=== PATIENT | male | born 1975 | race Two or more races ===

== ENCOUNTER 2016-12-28 20:02 | Emergency (ER) | payer MEDICAID ==
[~2016-12-28] VITALS: Ht 162.6 cm; Wt 81.6 kg
[~2016-12-28 20:02] MED LIST: METF-312 PO
[2016-12-28 22:09] LABS: Basophils # (auto) 0.1 uL; DEFINITIVE VIEW TRANSMISSION; Mean Corpuscular Volume 77.8 fL (80.0-100.0); Monocytes # (auto) 0.9 uL
[2016-12-28 22:17] LABS: Basophils % (auto) 0.8 % (0.0-2.0); Eosinophils # (auto) 0.1 uL; Eosinophils % (auto) 1.2 % (0.0-7.0); Hematocrit 40.3 % (41.0-53.0); Lymphocytes # (auto) 2.8 uL; Lymphocytes % (auto) 37.5 % (10.0-50.0); Mean Corpuscular Hemoglobin 25.2 pg (28.0-32.0); Mean Corpuscular Hgb Conc. 32.4 g/dL (32.0-36.0); Mean Platelet Volume 8.7 fL (7.4-10.4); Monocytes % (auto) 11.4 % (0.0-12.0); Neutrophils # (auto) 3.7 uL; Neutrophils % (auto) 49.1 % (37.0-80.0); Platelet Count (auto) 192 10^3/uL (140-450); White Blood Cell 7.6 10^3/uL (4.4-10.8)
[2016-12-28 22:27] LABS: Albumin 3.4 g/dL (3.4-5.0); Bilirubin, Total 0.5 mg/dL (0.2-1.0); Calcium 8.3 mg/dL (8.5-10.1); Potassium 3.8 mmol/L (3.5-5.1); Total Protein 8.2 g/dL (6.4-8.2)
[2016-12-28 22:30] LABS: Red Cell Distribution Width 22.7 % (11.6-16.0)
[2016-12-28 23:19] LABS: Anisocytosis Moderate; Hypochromia Slight; Platelet Estimate Adequate
[2016-12-28 23:20] LABS: Ovalocytes FEW
[2016-12-29] MEDS ORDERED: SODIUM CHLORIDE 0.9% 2,000 ML IV ONE (02:45)
[2016-12-29 05:59] LABS: Urine RBC None Seen /hpf (0 - 3)
[2016-12-29 07:39] LABS: Urine Bilirubin Negative (Negative); Urine Blood Negative /uL (Negative); Urine Color Yellow (Yellow); Urine Glucose Normal (Normal); Urine Ketone Negative (Negative); Urine Mucus FEW (None Seen); Urine Nitrite Negative (Negative); Urine Squamous Epithelial Cell FEW /hpf (<5); Urine Urobilinogen Normal (Negative); Urine pH 5.5 (5.0-8.0)
[2016-12-29] MEDS ORDERED: SODIUM CHLORIDE 0.9% 1,000 ML IV ONE (11:47)
[2016-12-29] MEDS ORDERED: SODIUM CHLORIDE 0.9% 250 ML IV ONE (11:47)
[2016-12-29] MEDS ORDERED: chlordiazePOXIDE HCL 5 MG CAP PO ONE (12:00)
[2016-12-29 18:30] VITALS: BP 184/110
[2016-12-29] MEDS ORDERED: cloNIDine HCL 0.1 MG TAB PO ONE (18:45)
== END 2016-12-29 18:53 | disposition home or self-care (01) ==
LOC: ER 20:07
DX: F10.120 Alcohol abuse with intoxication, uncomplicated (principal); F32.9 Major depressive disorder, single episode, unspecified; F41.9 Anxiety disorder, unspecified; E11.9 Type 2 diabetes mellitus without complications; E78.5 Hyperlipidemia, unspecified; I10 Essential (primary) hypertension; F17.210 Nicotine dependence, cigarettes, uncomplicated; Z88.0 Allergy status to penicillin
CPT/HCPCS: 36415; 80053; 80320; 81001; 82140; 84484; 85025; 94761; 96360; 99285; G0434; J7030

== ENCOUNTER 2017-10-05 13:33 | Inpatient (IN) | payer MEDICAID ==
[~2017-10-05] VITALS: Ht 162.6 cm; Wt 78.4 kg
[~2017-10-05 13:33] MED LIST changes: -METF-312 PO; +METF-370 PO; +PANT40T PO
[2017-10-05 15:01] LABS: Basophils % (auto) 0.5 % (0.0-2.0); Lymphocytes # (auto) 1.9 uL; Mean Corpuscular Hgb Conc. 31.4 g/dL (32.0-36.0); Nucleated Red Blood Cells % 0.3 %
[2017-10-05 15:05] LABS: Basophils # (auto) 0 uL; Eosinophils # (auto) 0.2 uL; Eosinophils % (auto) 2.4 % (0.0-7.0); Hematocrit 20.9 % (41.0-53.0); Lymphocytes % (auto) 19.1 % (10.0-50.0); Mean Corpuscular Hemoglobin 23.4 pg (28.0-32.0); Mean Corpuscular Volume 74.7 fL (80.0-100.0); Monocytes # (auto) 1.7 uL; Monocytes % (auto) 16.9 % (0.0-12.0); Neutrophils # (auto) 6.2 uL; Neutrophils % (auto) 61.1 % (37.0-80.0); Platelet Count (auto) 426 10^3/uL (140-450); White Blood Cell 10.1 10^3/uL (4.4-10.8)
[2017-10-05 15:25] LABS: Albumin 2.3 g/dL (3.4-5.0); BUN/Creatinine Ratio 24.6; Bilirubin, Total 0.4 mg/dL (0.2-1.0); Calcium 7.7 mg/dL (8.5-10.1); Potassium 3.8 mmol/L (3.5-5.1); Total Protein 6.7 g/dL (6.4-8.2)
[2017-10-05 16:38] LABS: Hemoglobin 6.6 g/dL (13.5-17.5)
[2017-10-05] MEDS ORDERED: PANTOPRAZOLE 40 MG/10 ML VIAL IV STA (18:14)
[2017-10-05] MEDS ORDERED: SODIUM CHLORIDE 0.9% 1,000 ML IV ONE (18:14)
[2017-10-05 18:58] LABS: INR 0.96 (0.9-1.15); Partial Thromboplastin Time 25.2 sec (22.64-33.71); Prothrombin Time 10.5 sec (9.37-12.3)
[2017-10-05] MEDS: SODIUM CHLORIDE 0.9% 1,000 ML IV SCH (19:36)
[2017-10-05] MEDS ORDERED: NITROGLYCERIN 0.4 MG SL TAB SL PRN (19:45)
[2017-10-05] MEDS ORDERED: THIAMINE HCL 100 MG/ML 2ML VIAL IV ONE (19:45)
[2017-10-05] MEDS ORDERED: MORPHINE SULFATE 4 MG/ML SYR/VIAL IV PRN (19:45)
[2017-10-05] MEDS ORDERED: PROMETHAZINE HCL 25 MG/ML 1ML IV PRN (19:45)
[2017-10-05] MEDS ORDERED: MORPHINE SULF INJ 2 MG/ML SYRINGE 1ML IV PRN ×2 (19:45)
[2017-10-05] MEDS ORDERED: LORazepam 2MG/ML-1ML VIAL IV PRN (19:45)
[2017-10-05] MEDS: PANTOPRAZOLE 40 MG/10 ML VIAL IV SCH (22:00)
[2017-10-05] MEDS: metroNIDAZOLE 500MG/100ML 100 ML IV SCH (22:00)
[2017-10-06] MEDS ORDERED: chlordiazePOXIDE HCL 25 MG CAP PO SCH
[2017-10-06 00:24] VITALS: BP 121/73
[2017-10-06 00:41] VITALS: BP 92/58
[2017-10-06 00:56] VITALS: BP 96/56
[2017-10-06] MEDS: SODIUM CHLORIDE 0.9% 1,000 ML IV SCH ×4 (02:26→21:32)
[2017-10-06 04:42] LABS: Basophils # (auto) 0.1 uL; Basophils % (auto) 0.6 % (0.0-2.0); Eosinophils # (auto) 0.2 uL; Neutrophils # (auto) 6.1 uL; Nucleated Red Blood Cells % 0.1 %; White Blood Cell 9.4 10^3/uL (4.4-10.8)
[2017-10-06 04:44] LABS: Eosinophils % (auto) 2.3 % (0.0-7.0); Hematocrit 23.7 % (41.0-53.0); Hemoglobin 7.7 g/dL (13.5-17.5); Lymphocytes # (auto) 1.9 uL; Lymphocytes % (auto) 19.7 % (10.0-50.0); Mean Corpuscular Hemoglobin 24.5 pg (28.0-32.0); Mean Corpuscular Hgb Conc. 32.3 g/dL (32.0-36.0); Mean Corpuscular Volume 75.8 fL (80.0-100.0); Monocytes # (auto) 1.2 uL; Monocytes % (auto) 12.8 % (0.0-12.0); Neutrophils % (auto) 64.6 % (37.0-80.0); Platelet Count (auto) 352 10^3/uL (140-450); Red Blood Cells 3.12 10^6/uL (4.5-5.90)
[2017-10-06 04:51] LABS: Red Cell Distribution Width 22.6 % (11.8-14.3)
[2017-10-06 04:59] LABS: Calcium 7.5 mg/dL (8.5-10.1)
[2017-10-06 05:02] LABS: Bilirubin, Total 0.6 mg/dL (0.2-1.0); Total Protein 5.8 g/dL (6.4-8.2)
[2017-10-06] MEDS: metroNIDAZOLE 500MG/100ML 100 ML IV SCH ×3 (06:36→21:31)
[2017-10-06] MEDS: PANTOPRAZOLE 40 MG/10 ML VIAL IV SCH (09:33)
[2017-10-06] MEDS: LEVOFLOXACIN 500MG 100 ML IV SCH (09:33)
[2017-10-06] MEDS: FAMOTIDINE (10MG/ML) 2ML VL IV SCH (09:51)
[2017-10-06] MEDS: THIAMINE HCL 100 MG/ML 2ML VIAL IV SCH (09:51)
[2017-10-06 12:13] LABS: Hematocrit 22.9 % (41.0-53.0)
[2017-10-06 12:17] LABS: Hemoglobin 7.5 g/dL (13.5-17.5)
[2017-10-06] MEDS ORDERED: LIDOCAINE VISCOUS 2% 15ML UD ONE (12:52)
[2017-10-06] MEDS ORDERED: MIDAZOLAM HCL 5 MG/ML-1ML VIAL ONE (12:53)
[2017-10-06] MEDS ORDERED: fentaNYL CITRATE 100 MCG/2 ML VL ONE (12:53)
[2017-10-06] MEDS ORDERED: SODIUM CHLORIDE LOCK 10 ML ONE (12:54)
[2017-10-06] MEDS ORDERED: diphenhdrAMINE HCL 50 MG/1 ML VL ONE (12:54)
[2017-10-06] MEDS ORDERED: EPINEPHrine HCL 1 MG/10 ML SYRG ONE (13:03)
[2017-10-06 17:00] VITALS: BP 115/70
[2017-10-06] MEDS ORDERED: PNEUMOCOCCAL VACC POLYS 25 MCG/0.5 ML VIAL IM ONE (19:15)
[2017-10-06] MEDS ORDERED: INFLUENZA QUAD 2017-2018 0.5 ML SYRG IM ONE (19:15)
[2017-10-06] MEDS: PANTOPRAZOLE 40 MG TAB PO SCH (21:31)
[2017-10-06 22:00] VITALS: BP 115/67
[2017-10-07] MEDS: SODIUM CHLORIDE 0.9% 1,000 ML IV SCH ×2 (05:21→09:53)
[2017-10-07] MEDS: metroNIDAZOLE 500MG/100ML 100 ML IV SCH ×2 (05:35→14:00)
[2017-10-07 06:00] VITALS: BP_SYST 111; BP_SYST 115; BP_SYST 120; BP_DIAS 66; BP_DIAS 67
[2017-10-07 09:01] VITALS: BP 127/73
[2017-10-07] MEDS: FAMOTIDINE (10MG/ML) 2ML VL IV SCH (09:52)
[2017-10-07] MEDS: THIAMINE HCL 100 MG/ML 2ML VIAL IV SCH (09:52)
[2017-10-07] MEDS: PANTOPRAZOLE 40 MG TAB PO SCH (09:52)
[2017-10-07] MEDS: LEVOFLOXACIN 500MG 100 ML IV SCH (09:53)
[2017-10-07 13:00] VITALS: BP 117/70
[2017-10-07 13:42] VITALS: BP 117/70
== END 2017-10-07 15:55 | disposition home or self-care (01) | DRG 241 ==
LOC: ER 13:33 → OVERFLOW 13:34 → TELE-EAST 10-06 17:56
PROVIDERS: ADMIT Internal Medicine; ATTEND Internal Medicine
PROC: 30233N1 Transfusion of Nonautologous Red Blood Cells into Peripheral Vein, Percutaneous Approach (ICD-10-PCS; 2017-10-05)
PROC: 0DJ08ZZ Inspection of Upper Intestinal Tract, Via Natural or Artificial Opening Endoscopic (ICD-10-PCS; principal; 2017-10-06 14:30)
DX: K29.71 Gastritis, unspecified, with bleeding (principal); E43 Unspecified severe protein-calorie malnutrition; K70.31 Alcoholic cirrhosis of liver with ascites; D50.0 Iron deficiency anemia secondary to blood loss (chronic); F17.210 Nicotine dependence, cigarettes, uncomplicated; I10 Essential (primary) hypertension; K85.90 Acute pancreatitis without necrosis or infection, unspecified; F32.9 Major depressive disorder, single episode, unspecified; E78.5 Hyperlipidemia, unspecified; F41.9 Anxiety disorder, unspecified; Z82.49 Family history of ischemic heart disease and other diseases of the circulatory system; Z23 Encounter for immunization; Z83.3 Family history of diabetes mellitus; Z87.11 Personal history of peptic ulcer disease; Z88.0 Allergy status to penicillin
CPT/HCPCS: 36415; 36430; 43235; 74176; 76700; 80053; 82150; 82962; 83690; 85014; 85018; 85025; 85045; 85610; 85730; 86850; 86900; 86901; 86920; 87081; 93005; 96361; 96365; 96375; 99291; C9113; G0378; J1956; J2250; J3490

== ENCOUNTER 2018-03-13 03:27 | Emergency (ER) | payer MEDICAID ==
[~2018-03-13] VITALS: Ht 162.6 cm; Wt 104.3 kg
[2018-03-13 05:43] LABS: White Blood Cell 8.4 10^3/uL (4.4-10.8)
[2018-03-13 05:44] LABS: Hematocrit 34.7 % (41.0-53.0); Hemoglobin 11.4 g/dL (13.5-17.5); Mean Corpuscular Hemoglobin 23.3 pg (28.0-32.0); Mean Corpuscular Hgb Conc. 32.8 g/dL (32.0-36.0); Mean Corpuscular Volume 71.1 fL (80.0-100.0); Platelet Count (auto) 192 10^3/uL (140-450); Red Blood Cells 4.88 10^6/uL (4.5-5.90)
[2018-03-13 05:45] LABS: Red Cell Distribution Width 21.8 % (11.8-14.3)
[2018-03-13] MEDS ORDERED: SODIUM CHLORIDE 0.9% 3,000 ML IV ONE (05:45)
[2018-03-13 05:49] LABS: Band Neutrophils % (manual) 0; Basophils % (manual) 0 (0.0-2.0); Blast Cells 0; Metamyelocytes % 0; Myelocytes % 0; Promyelocytes % 0
[2018-03-13 05:50] LABS: Partial Thromboplastin Time 27.3 sec (23.78-33.04); Prothrombin Time 10.7 sec (9.27-12.13)
[2018-03-13 05:50] LABS: Urine Bacteria NONE SEEN /hpf (None Seen); Urine Blood Negative /uL (Negative); Urine Mucus FEW (None Seen); Urine Specific Gravity 1.029 (1.001-1.035); Urine WBC 2 /hpf (0 - 3)
[2018-03-13 06:05] LABS: Amphetamine Screen, Urine POSITIVE (NEGATIVE); Barbiturate Scree,Urine NEGATIVE (NEGATIVE); Benzodiazephine Screen, Urine NEGATIVE (NEGATIVE); Cannabinoid Screen, Urine NEGATIVE (NEGATIVE); Cocaine Screen, Urine NEGATIVE (NEGATIVE); Opiate Scree,Urine NEGATIVE (NEGATIVE); Phencyclidine Screen, Urine NEGATIVE (NEGATIVE)
[2018-03-13 06:08] LABS: Eosinophils % (manual) 3 (0-7); Lymphocytes % (manual) 20 (10.0-50.0); Monocytes % (manual) 19 (0-12); Reactive Lymphocytes 2
[2018-03-13 06:10] LABS: Alanine Aminotransferase 35 U/L (16-61); Albumin 3.2 g/dL (3.4-5.0); Alkaline Phosphatase 163 U/L (45-117); Amylase 84 U/L (25-115); Anion Gap 9 (5-15); Aspartate Aminotransferase 46 U/L (15-37); BUN/Creatinine Ratio 17.3; Bilirubin, Total 0.4 mg/dL (0.2-1.0); Blood Urea Nitrogen 9 mg/dL (7-18); Calcium 8.6 mg/dL (8.5-10.1); Carbon Dioxide 25 mmol/L (21-32); Chloride 103 mmol/L (98-107); GFR African American 222 mL/min; GFR Non-African American 183 mL/min; Glucose 158 mg/dL (74-106); Lipase 251 U/L (73-393); Magnesium 2.2 mg/dL (1.6-2.6); Potassium 3.8 mmol/L (3.5-5.1); Sodium 137 mmol/L (136-145); Total Protein 7.8 g/dL (6.4-8.2)
[2018-03-13 08:09] VITALS: BP 125/80
== END 2018-03-13 10:39 | disposition home or self-care (01) ==
LOC: ER 03:38
DX: R07.9 Chest pain, unspecified (principal); F10.129 Alcohol abuse with intoxication, unspecified; E11.9 Type 2 diabetes mellitus without complications; E78.5 Hyperlipidemia, unspecified; I10 Essential (primary) hypertension; F17.210 Nicotine dependence, cigarettes, uncomplicated; Z87.11 Personal history of peptic ulcer disease; Z88.0 Allergy status to penicillin; Y90.9 Presence of alcohol in blood, level not specified
CPT/HCPCS: 36415; 71045; 80053; 80307; 81001; 82140; 82150; 83690; 83735; 83880; 84484; 85007; 85027; 85610; 85730; 93005

== ENCOUNTER 2018-03-15 21:25 | Emergency (ER) | payer MEDICAID ==
[~2018-03-15] VITALS: Ht 162.6 cm; Wt 113.4 kg
[2018-03-15 21:37] VITALS: BP 136/88
[2018-03-16] MEDS ORDERED: TRIAMCINOLONE 40MG/ML 1ML VIAL ONE (00:36)
[2018-03-16] MEDS ORDERED: LIDOCAINE 2% (LOCAL ANESTH.) PF 5ml SDV ONE (01:29)
[2018-03-16] MEDS ORDERED: HYDROcodone-ACET 10/325MG TAB PO ONE (02:00)
== END 2018-03-16 01:55 | disposition home or self-care (01) ==
LOC: EDBD 21:25 → ER 21:25
DX: M54.41 Lumbago with sciatica, right side (principal); E11.9 Type 2 diabetes mellitus without complications; E78.5 Hyperlipidemia, unspecified; I10 Essential (primary) hypertension; F17.210 Nicotine dependence, cigarettes, uncomplicated; Z88.0 Allergy status to penicillin; Z79.899 Other long term (current) drug therapy
CPT/HCPCS: 72100; 96372; 99284; J3301; 96374

== ENCOUNTER 2018-03-16 06:41 | Emergency (ER) | payer MEDICAID ==
[~2018-03-16] VITALS: Ht 162.6 cm; Wt 99.8 kg
[2018-03-16 07:17] VITALS: BP 115/82
== END 2018-03-16 08:25 | disposition home or self-care (01) ==
LOC: ER 06:41
DX: M25.551 Pain in right hip (principal); G89.29 Other chronic pain; Z79.899 Other long term (current) drug therapy; E11.9 Type 2 diabetes mellitus without complications; E78.5 Hyperlipidemia, unspecified; I10 Essential (primary) hypertension; Z88.0 Allergy status to penicillin; F17.210 Nicotine dependence, cigarettes, uncomplicated

== ENCOUNTER 2018-08-28 03:50 | Emergency (ER) | payer MEDICAID ==
[~2018-08-28] VITALS: Ht 162.6 cm; Wt 86.2 kg
[2018-08-28 06:14] LABS: Basophils # (auto) 0 uL; Basophils % (auto) 0.2 % (0.0-2.0); Eosinophils # (auto) 0.1 uL; Eosinophils % (auto) 0.5 % (0.0-7.0); Hematocrit 39.1 % (41.0-53.0); Hemoglobin 13.1 g/dL (13.5-17.5); Lymphocytes # (auto) 1.2 uL; Lymphocytes % (auto) 9.1 % (10.0-50.0); Mean Corpuscular Hemoglobin 27.8 pg (28.0-32.0); Mean Corpuscular Hgb Conc. 33.5 g/dL (32.0-36.0); Monocytes # (auto) 1.6 uL; Monocytes % (auto) 12.6 % (0.0-12.0); Neutrophils # (auto) 10.1 uL; Neutrophils % (auto) 77.6 % (37.0-80.0); Platelet Count (auto) 209 10^3/uL (140-450); Red Blood Cells 4.71 10^6/uL (4.5-5.90)
[2018-08-28 06:17] LABS: Red Cell Distribution Width 20.2 % (11.8-14.3)
[2018-08-28 06:34] LABS: INR 1.02 (0.9-1.15); Partial Thromboplastin Time 26.9 sec (23.78-33.04); Prothrombin Time 10.9 sec (9.27-12.13)
[2018-08-28 06:36] LABS: Albumin 3.1 g/dL (3.4-5.0); BUN/Creatinine Ratio 20.3; Calcium 8.3 mg/dL (8.5-10.1); Magnesium 1.8 mg/dL (1.6-2.6); Potassium 3.6 mmol/L (3.5-5.1)
[2018-08-28 06:39] LABS: Bilirubin, Total 0.9 mg/dL (0.2-1.0)
[2018-08-28] MEDS ORDERED: CLINDAMYCIN 600MG IV 50 ML IV ONE (06:45)
[2018-08-28] MEDS ORDERED: LIDOCAINE 1% (LOCAL ANESTH.) PF 5ml SDV ID ONE (06:45)
[2018-08-28] MEDS ORDERED: MORPHINE SULFATE 4 MG/ML SYR/VIAL IV ONE (06:45)
[2018-08-28] MEDS ORDERED: ONDANSETRON HCL 4 MG/2 ML VIAL IV ONE (06:45)
[2018-08-28] MEDS ORDERED: SODIUM CHLORIDE 0.9% 1,000 ML IV ONE (06:45)
[2018-08-28] MEDS ORDERED: LIDOCAINE 1% HCL (LOCAL ANESTH.) INJ 20ML MDV ONE (07:02)
[2018-08-28] MEDS ORDERED: MORPHINE SULF INJ 2 MG/ML SYRINGE 1ML ONE (07:12)
[2018-08-28] MEDS ORDERED: TETANUS-DIPTH-ACEL PERTUSSIS 0.5ML SYRG IM ONE (07:45)
[2018-08-28 09:05] VITALS: BP 150/92
== END 2018-08-28 09:31 | disposition short-term general hospital (02) ==
LOC: EDBD 03:50 → ER 03:56
DX: L02.511 Cutaneous abscess of right hand (principal); E11.9 Type 2 diabetes mellitus without complications; E78.5 Hyperlipidemia, unspecified; I10 Essential (primary) hypertension; F17.210 Nicotine dependence, cigarettes, uncomplicated; Z88.0 Allergy status to penicillin; Z79.899 Other long term (current) drug therapy; Z79.84 Long term (current) use of oral hypoglycemic drugs
CPT/HCPCS: 26010; 36415; 73120; 80053; 82962; 83605; 83735; 85025; 85610; 85730; 87040; 87077; 87186; 90471; 90715; 96365; 96375; 99285; J2001; J2270; J2405; J3490; J7030

== ENCOUNTER 2019-10-19 01:50 | Emergency (ER) | payer MEDICAID ==
[~2019-10-19] VITALS: Ht 177.8 cm; Wt 86.2 kg
[2019-10-19 01:59] VITALS: BP 111/66
[2019-10-19] MEDS ORDERED: BACLOFEN 10 MG TAB PO ONE (03:30)
[2019-10-19] MEDS ORDERED: HYDROcodone-ACET 10/325MG TAB PO ONE (03:30)
== END 2019-10-19 04:35 | disposition home or self-care (01) ==
LOC: EDSEX 01:50 → ER 01:50 → EDBD 01:50 → ER 04:35
DX: M62.838 Other muscle spasm (principal); M25.511 Pain in right shoulder; M54.2 Cervicalgia; E11.9 Type 2 diabetes mellitus without complications; E78.5 Hyperlipidemia, unspecified; I10 Essential (primary) hypertension; F17.210 Nicotine dependence, cigarettes, uncomplicated; Z87.11 Personal history of peptic ulcer disease; Z88.0 Allergy status to penicillin
CPT/HCPCS: 72040

== ENCOUNTER 2024-08-13 16:00 | Inpatient (IN) | payer MEDICAID ==
[~2024-08-13] VITALS: Ht 177.8 cm; Wt 100.0 kg
--- NOTE | 2024-08-13 16:10 | ED.PDOC ---
Musculoskeletal HPI Comments HPI: 49-year-old male homeless brought in by ambulance for evaluation of right calf pain right extremity pain and right lumbosacral/buttock/sciatic region pain. Onset of symptoms today. Denies any fall or trauma. He said he was helping a friend lifting some very heavy rocks two days ago and started developing pain to day. Vitals: temp: 98.0 RR: 16 02 sat: 99% on RA heart rate: 82 BP: 136/89 PMH: Diabetes Peptic ulcer disease Liver cirrhosis/alcoholic liver disease Ascites Anxiety Depression Dyslipidemia Hypertension PSH: denies social history: endorses tobacco use, denies ETOH use, denies drug use medications: metformin allergies: penicillin Past surgical history is right femur surgery HPI: Poor Historian. REVIEW OF SYSTEMS: CONSTITUTIONAL: Denies acute: fever, diaphoresis, chills, generalized weakness. HEAD: Denies acute: headache, photophobia Eyes: Denies acute: Double vision, vision loss, eye pain, eye discharge. EARS: Denies acute: tinnitus, hearing loss, ear discharge, ear pain, THROAT: Denies acute: sore throat, swelling, difficulty swallowing , pain with swallowing, change in voice. NECK: Denies acute: neck pain, neck swelling, stiff neck. HEART: Denies acute : chest pain, palpitations, LUNGS: Denies acute: SOB, wheezing, cough, hemoptysis ABDOMEN: Denies acute: abdominal pain, Nausea, Vomiting, diarrhea, melena , hematemesis, hematochezia SKIN: Denies acute: rash, redness, lesions, itchiness. EXTREMITIES: Denies acute: calf pain, numbness, tingling, weakness, Neuro: Denies acute: focal neurological deficit, motor or sensory focal neurological deficit, tremors, seizure like activity, confusion, dizziness, change in mental status, loss of bowel or bladder function, cauda equina like symptoms. : Denies acute: dysuria, hematuria, flank pain, increase in urinary frequency. PSYCH: Denies acute: hallucination, suicidal ideation, homicidal ideation. PHYSICAL EXAM: General: no acute distress, awake and alert. Head: normocephalic, atraumatic. Neck: supple, trachea is midline, no swelling. Throat: Normal phonation. Eyes:, no erythema, no purulent discharge, no proptosis, no icterus. Heart: regular rate, regular rhythm, no significant murmur appreciated. Lungs: no apparent respiratory distress, Able to speak in full sentences. No wheezing, no rhonchi, no crackles. No stridors Clear to auscultation bilaterally. Abdomen: non tender to palpation, non distended, soft, no guarding, no rebound, + bowel sounds. Neuro: Awake, Alert, oriented to name, self, situation, follows commands GCS=15. Speech is normal. Skin: no petechia, no purpura, no cyanosis, non-pale, not jaundice. Lower extremities: --no - Pitting edema no deformity, no focal swelling, right calf TTP. Patient is neurovascularly intact in the affected extremity. Motor and sensory are present. Able to wiggle his toes. Pedal pulses are palpable. Patient has decreased range of motion of right knee right hip flexion he says due to pain. Makes eye contact. moves all four extremities. Face: no apparent facial droop. Pedal pulses are palpable. No nystagmus. No nuchal rigidity, Kernig's sign, Brudzinski's sign, no meningeal signs. Time Seen by MD: 16:23 Primary Care Provider: MICHELLE Reviewed Notes: Nurses Notes, Avionics Systems Integration Specialist Notes, Allergies Allergies: Coded Allergies: Penicillins (Verified Allergy, Unknown, 10/19/19) Home Meds Active Scripts Pantoprazole Sodium Sesquihydr (Pantoprazole Sodium) 40 Mg Tab, 40 MG PO BID, #60 TAB 1 Refill Prov:SARIKA GURROLA MD 09/12/17 Reported Medications Metformin Hydrochloride (Metformin Hcl) 500 Mg Tab, 500 MG PO IBID for 30 Days, MG 05/02/16 Information Source: Patient, Emergency Med Personnel Mode of Arrival: EMS Brought in by: EMS Past Medical History PAST MEDICAL HISTORY: Anxiety, Depression, DM, High Lipids, HTN, Liver, PUD Surgical History: Denies all surgeries Family History Family History: Unknown, Unobtainable Social History Smoker: Cigarettes, Less Than 1 Pack/Day Alcohol: Occasionally Drugs: Denies Drug Use Lives In: Home Was a procedure done? Was a procedure done?: No Differential Diagnosis EXT Differential Diagnosis: Other (Leg swellingDdx include but not limited to DVT, ischemic limb, pitting edema, volume overload, CHF, cellulitis, hematoma, compartment syndrome, dependent edema, venous stasis.) Other Differential Diagnosis DDX included but not limited to Cauda Equina syndrome, lumbar radiculopathy, arthritis, disk herniation, sciatica, muscle strain, epidural abscess, transverse myelitis. Cord compression, spinal foraminal stenosis, spinal fractures, spondylosis, central canal stenosis, trauma, muscle sprain/strain, aneurysm/dissection, kidney stones, shingles, arthritis, Guillan [place], neoplasm. X-Ray, Labs, Meds, VS Vital Signs Date Time Temp Pulse Resp B/P (MAP) Pulse Ox O2 Delivery O2 Flow Rate FiO2 08/13/24 20:27 98.0 94 16 116/70 (85) 98 98.0 08/13/24 16:17 98.0 82 16 136/89 (105) 99 Lab Test 08/13/24 19:09 08/13/24 17:00 Range/Units Urine Color Yellow Yellow Urine Clarity Clear Clear Urine pH 6.0 5.0-9.0 Urine Specific [place] 1.028 1.001-1.035 Urine Protein Trace H Negative Urine Ketones Trace Negative Urine Blood Negative Negative /uL Urine Nitrite Negative Negative Urine Bilirubin Negative Negative Urine Urobilinogen 3 H Negative mg/dL Urine Leukocyte Esterase Negative Negative /uL Urine RBC 1 0 - 3 /hpf Urine WBC 1 0 - 3 /hpf Urine Squamous Epithelial Cells Few <5 /hpf Urine Bacteria None seen None Seen /hpf Urine Mucus Few None Seen Urine Glucose 3+ H Normal mg/dL Urine Opiates Screen Neg NEGATIVE Urine Fentanyl Screen Neg NEGATIVE Urine Barbiturates Screen Neg NEGATIVE Urine Phencyclidine Screen Neg NEGATIVE Urine Amphetamines Screen Pos NEGATIVE Urine Benzodiazepines Screen Neg NEGATIVE Urine Cocaine Screen Neg NEGATIVE Urine Cannabinoids Screen Neg NEGATIVE White Blood Count 5.4 4.4-10.8 10^3/uL Red Blood Count 5.08 4.5-5.90 10^6/uL Hemoglobin 16.1 13.5-17.5 g/dL Hematocrit 46.2 41.0-53.0 % Mean Corpuscular Volume 90.9 80.0-100.0 fL Mean Corpuscular Hemoglobin 31.6 28.0-32.0 pg Mean Corpuscular Hemoglobin Concent 34.8 32.0-36.0 g/dL Red Cell Distribution Width 15.2 H 11.8-14.3 % Platelet Count 180 140-450 10^3/uL Mean Platelet Volume 7.9 6.9-10.8 fL Neutrophils (%) (Auto) 62.9 37.0-80.0 % Lymphocytes (%) (Auto) 26.6 10.0-50.0 % Monocytes (%) (Auto) 9.2 0.0-12.0 % Eosinophils (%) (Auto) 0.8 0.0-7.0 % Basophils (%) (Auto) 0.5 0.0-2.0 % Neutrophils # (Auto) 3.4 1.6-8.6 10 ^3/uL Lymphocytes # (Auto) 1.4 0.4-5.4 10 ^3/uL Monocytes # (Auto) 0.5 0-1.3 10 ^3/uL Eosinophils # (Auto) 0 0-0.8 10 ^3/uL Basophils # (Auto) 0 0-0.2 10 ^3/uL Nucleated Red Blood Cells 0.2 % Sodium Level 139 136-145 mmol/L Potassium Level 4.3 3.5-5.1 mmol/L Chloride Level 106 98-107 mmol/L Carbon Dioxide Level 28 20-31 mmol/L Anion Gap 5 5-15 Blood Urea Nitrogen 10 9-23 mg/dL Creatinine 0.74 0.700-1.30 mg/dL Glomerular Filtration Rate Calc 110 >90 mL/min BUN/Creatinine Ratio 13.5 10.0-20.0 Serum Glucose 98 74-106 mg/dL Lactic Acid Level 1.3 0.4-2.0 mmol/L Calcium Level 10.1 8.7-10.4 mg/dL Total Bilirubin 1.0 0.2-1.0 mg/dL Aspartate Amino Transferase (AST) 53 H 13-40 U/L Alanine Aminotransferase (ALT) 44 H 7-40 U/L Alkaline Phosphatase 120 H 46-116 U/L Creatine Kinase 125 46-171 U/L Total Protein 7.4 5.7-8.2 g/dL Albumin 3.9 3.2-4.8 g/dL [address] [address] Ph: [phone] DIAGNOSTIC IMAGING Diagnostic Imaging Report : [id number] Signed PATIENT: MAYURI WEAVERO ACCT: [id number] UNIT: [id number] : 1975 LOC: ER ROOM / BED: / AGE / SEX: 49 / M ADM STATUS: REG ER SERVICE ORDERING PHYSICIAN: RICARDA LIN DO PROCEDURE(s): RLDVT - RT Lower DVT REASON: r calf pain ORDER NUMBER(s): [id number], ACCESSION NUMBER(s): [id number] Clinical History: r calf pain Comparison: None Technique: Duplex Doppler evaluation of the deep venous system of the right lower extremity from the common femoral vein to the popliteal vein including color Doppler and spectral/pulsed waveform analysis was performed. Findings: The common femoral vein demonstrates appropriate compressibility and waveform variability. There is compressibility/patency of the great saphenous vein at the proximal thigh. The femoral vein demonstrates appropriate compressibility and waveform variability. The deep femoral vein demonstrates appropriate compressibility and waveform variability. The popliteal vein demonstrates appropriate compressibility and waveform variability. There is color flow in the tibioperoneal trunk and posterior tibial vein. Impression: 1. No deep venous thrombosis in the right lower extremity. If clinical concern/symptoms persist or worsen, short-interval follow-up study is suggested. ATED BY: MARTHA ARROYO MD DICTATED DATE/TIME: 08/13/241648 SIGNED BY: MARTHA ARROYO MD SIGNED DATE/TIME: 08/13/241648 CC: [place] [id number] Ph: [phone] DIAGNOSTIC IMAGING Diagnostic Imaging Report : [id number] Signed PATIENT: PALOMA WEAVER ACCT: [id number] UNIT: [id number] : 1975 LOC: ER ROOM / BED: / AGE / SEX: 49 / M ADM STATUS: REG ER SERVICE ORDERING PHYSICIAN: RICARDA LIN DO PROCEDURE(s): ABPL - CT AB PEL WO CON-NO ORAL OR IV REASON: r lumbosacral/buttock pain, possible sciatica ORDER NUMBER(s): [id number], ACCESSION NUMBER(s): [id number] CT ABDOMEN AND PELVIS WITHOUT CONTRAST CLINICAL HISTORY: r lumbosacral/buttock pain, possible sciatica TECHNIQUE: Multiple contiguous axial images of the abdomen and pelvis without intravenous contrast. The images were reformatted degenerate coronal and sagittal reconstructions. All CT scans at this medical facility are performed using dose modulation techniques as appropriate to a performed exam including the following:Automated exposure control was utilized; adjustment of the MA and/or KV according to patient size; and use of iterative reconstruction technique. Radiation Dose Information: CT Dose: CTDI volume is 15.18 mGy. Dose-length product is 891.22 mGy*cm Comparison: None FINDINGS: Evaluation of the abdomen and pelvis is limited without intravenous contrast. The liver is small in size with nodular surface contour compatible with cirrhotic morphology. There is no gross hepatic lesion identified on the current noncontrast CT. The gallbladder, pancreas, kidneys, adrenal glands, and spleen appear within normal limits. There is no gross evidence of abdominal lymphadenopathy. There is no free fluid or free air. The small and large bowel loops demonstrate normal caliber. There is moderate amount of stool intermixed with air seen in the colon. The abdominal aorta and IVC appear within normal limits. The bladder grossly appears unremarkable for the degree of distention.. Pelvic organ appears within normal limits. There is no gross evidence of a pelvic mass or fluid collection. Lung bases are clear. There is no acute osseous abnormality. There are several screws in the right femoral neck. IMPRESSION: 1. There is no acute process in the abdomen and pelvis. 2. The liver demonstrates cirrhotic morphology. There is no gross hepatic lesion identified on the current noncontrast CT. 3. Moderate amount of stool intermixed with air in the colon. HS:Y ATED BY: VOLODYMYR PLEITEZ MD DICTATED DATE/TIME: 08/13/241647 SIGNED BY: VOLODYMYR PLEITEZ MD SIGNED DATE/TIME: 08/13/241647 CC: Time of 1ST Reevaluation: 21:52 (Patient states he is unable to ambulate. We have been using a wheelchair for him. No acute findings on our workup today. Patient will be admitted to the hospital for further evaluation and treatment) Reevaluation 1ST: Unchanged Patient Education/Counseling: Diagnosis, Treatment Family Education/Counseling: No Family Present Comments Patient presented with the above HPI.---extremity pain, sciatica, low back pain---workup was initiated. patient was found with the above mentioned diagnos is. Patient was given: Toradol, [place], Decadron, Patient ED course and VS have been stabilized. Patient has been reassessed in the ED and remained in a stable condition. Pertinent incidental findings were discussed with the patient and/or family. Patient/family voices understanding and is agreeable with plan. Patient has been observed in the ED adequate length of time to insure improvement/stability. patient was admitted to the medicine team for further evaluation and treatment of their presentation. All the reports of any imaging studies that were ordered by myself were reviewed by myself. Departure 1 Departure Time of Disposition: 20:28 Impression: Primary Impression: Right calf pain Additional Impressions: Right leg pain Sciatica Methamphetamine abuse Homelessness Unable to ambulate Disposition: ADMITTED INPATIENT Admit to: [facility] Condition: Stable Discharged With: Self Critical Care Note Critical Care Time?: No I personally scribed for RICARDA LIN DO ([email or web address]) on 08/13/24 at 16:10. Electronically submitted by Tonya Kauffman ([email or web address]). I personally scribed for RICARDA LIN DO ([email or web address]) on 08/13/24 at 16:25. Electronically submitted by Tonya Kauffman ([email or web address]). I personally scribed for RICARDA LIN DO ([email or web address]) on 08/13/24 at 17:44. El ectronically submitted by Tonya Kauffman ([email or web address]). I personally scribed for RICARDA LIN DO ([email or web address]) on 08/13/24 at 22:25. Electronically submitted by Tonya Kauffman [email or web address]). RICARDA LIN DO Aug 13, 2024 16:10
--- NOTE | 2024-08-13 16:50 | DVH ---
CT ABDOMEN AND PELVIS WITHOUT CONTRAST CLINICAL HISTORY: r lumbosacral/buttock pain, possible sciatica TECHNIQUE: Multiple contiguous axial images of the abdomen and pelvis without intravenous contrast. The images were reformatted degenerate coronal and sagittal reconstructions. All CT scans at this medical facility are performed using dose modulation techniques as appropriate t o a performed exam including the following:Automated exposure control was utilized; adjustment of the MA and/or KV according to patient size; and use of iterative reconstruction technique. Radiation Dose Information: CT Dose: CTDI volume is 15.18 mGy. Dose-length product is 891.22 mGy*cm Comparison: None FINDINGS: Evaluation of the abdomen and pelvis is limited without intravenous contrast. The liver is small in size with nodular surface contour compatible with cirrhotic morphology. There i s no gross hepatic lesion identified on the current noncontrast CT. The gallbladder, pancreas, kidneys, adrenal glands, and spleen appear within normal limits. There is no gross evidence of abdominal lymphadenopathy. There is no free fluid or free air. The small and large bowel loops demonstrate normal caliber. There is moderate amount of stool interm ixed with air seen in the colon. The abdominal aorta and IVC appear within normal limits. The bladder grossly appears unremarkable for the degree of distention.. Pelvic organ appears within normal limits. There is no gross evidence of a pelvic mass or fluid collection. Lung bases are clear. There is no acute osseous abnormality. There are several screws in the right femoral neck. IMPRESSION: 1. There is no acute process in the abdomen and pelvis. 2. The liver demonstrates cirrhotic morphology. There is no gross hepatic lesion identified on the c urrent noncontrast CT. 3. Moderate amount of stool intermixed with air in the colon. HS:Y
--- NOTE | 2024-08-13 16:52 | DVH ---
Clinical History: r calf pain Comparison: None Technique: Duplex Doppler evaluation of the deep venous system of the right lower extremity from the common fem oral vein to the popliteal vein including color Doppler and spectral/pulsed waveform analysis was per formed. Findings: The common femoral vein demonstrates appropriate compressibility and waveform variability. There is compressibility/patency of the great saphenous vein at the proximal thigh. The femoral vein demonstrates appropriate compressibility and waveform variability. The deep femoral vein demonstrates appropriate compressibility and waveform variability. The popliteal vein demonstrates appropriate compressibility and waveform variability. There is color flow in the tibioperoneal trunk and posterior tibial vein. Impression: 1. No deep venous thrombosis in the right lower extremity. If clinical concern/symptoms persist or w orsen, short-interval follow-up study is suggested.
[2024-08-13 17:28] LABS: Basophils # (auto) 0 10 ^3/uL (0-0.2); Basophils % (auto) 0.5 % (0.0-2.0); Eosinophils # (auto) 0 10 ^3/uL (0-0.8); Eosinophils % (auto) 0.8 % (0.0-7.0); Hematocrit 46.2 % (41.0-53.0); Hemoglobin 16.1 g/dL (13.5-17.5); Lymphocytes # (auto) 1.4 10 ^3/uL (0.4-5.4); Lymphocytes % (auto) 26.6 % (10.0-50.0); Mean Corpuscular Hemoglobin 31.6 pg (28.0-32.0); Mean Corpuscular Hgb Conc. 34.8 g/dL (32.0-36.0); Mean Corpuscular Volume 90.9 fL (80.0-100.0); Monocytes # (auto) 0.5 10 ^3/uL (0-1.3); Monocytes % (auto) 9.2 % (0.0-12.0); Neutrophils # (auto) 3.4 10 ^3/uL (1.6-8.6); Neutrophils % (auto) 62.9 % (37.0-80.0); Nucleated Red Blood Cells % 0.2 %; Platelet Count (auto) 180 10^3/uL (140-450); Red Blood Cells 5.08 10^6/uL (4.5-5.90); Red Cell Distribution Width 15.2 % (11.8-14.3); White Blood Cell 5.4 10^3/uL (4.4-10.8)
[2024-08-13 17:42] LABS: Alanine Aminotransferase 44 U/L (7-40); Albumin 3.9 g/dL (3.2-4.8); Alkaline Phosphatase 120 U/L (46-116); Anion Gap 5 (5-15); Aspartate Aminotransferase 53 U/L (13-40); BUN/Creatinine Ratio 13.5 (10.0-20.0); Blood Urea Nitrogen 10 mg/dL (9-23); Calcium 10.1 mg/dL (8.7-10.4); Carbon Dioxide 28 mmol/L (20-31); Chloride 106 mmol/L (98-107); Creatine Kinase IFCC 125 U/L (46-171); Glucose 98 mg/dL (74-106); Potassium 4.3 mmol/L (3.5-5.1); Sodium 139 mmol/L (136-145); Total Protein 7.4 g/dL (5.7-8.2)
[2024-08-13 19:11] LABS: Urine Bacteria None Seen /hpf (None Seen)
[2024-08-13 19:31] LABS: Urine Blood Negative /uL (Negative); Urine Clarity Clear (Clear); Urine Color Yellow (Yellow); Urine Mucus FEW (None Seen); Urine Protein, UAD TRACE (Negative); Urine Specific Gravity 1.028 (1.001-1.035); Urine Urobilinogen 3 mg/dL (Negative); Urine WBC 1 /hpf (0 - 3)
[2024-08-13 19:38] LABS: Amphetamine Screen, Urine Pos (NEGATIVE); Barbiturate Scree,Urine Neg (NEGATIVE); Benzodiazephine Screen, Urine Neg (NEGATIVE); Cannabinoid Screen, Urine Neg (NEGATIVE); Cocaine Screen, Urine Neg (NEGATIVE); Opiate Scree,Urine Neg (NEGATIVE); Phencyclidine Screen, Urine Neg (NEGATIVE)
[2024-08-13] MEDS ORDERED: ONDANSETRON HCL 4 MG/2 ML VIAL IV PRN (22:45)
[2024-08-13] MEDS ORDERED: NITROGLYCERIN 0.4 MG SL TAB SL PRN (22:45)
[2024-08-13] MEDS ORDERED: TEMAZEPAM 15 MG CAP PO PRN (22:45)
[2024-08-13] MEDS ORDERED: MORPHINE SULFATE INJ 2 MG/ml SYRG IV PRN (22:45)
[2024-08-13] MEDS ORDERED: ACETAMINOPHEN 325 MG TAB PO PRN (22:45)
[2024-08-13] MEDS ORDERED: BACLOFEN 10 MG TAB PO PRN (23:00)
[2024-08-14] MEDS: KETOROLAC TROMETH 30 MG/ML 1ML VIAL IM ONE (01:32)
[2024-08-14] MEDS: HYDROcodone-ACET 5/325MG TAB PO ONE (01:38)
[2024-08-14] MEDS: SODIUM CHLORIDE 0.9% 1,000 ML IV ONE (01:38)
[2024-08-14] MEDS: DexAMETHasone SOD PHOS 10MG/1ML VIAL INJ IM ONE (01:38)
--- NOTE | 2024-08-14 06:26 | DVHHP2 ---
History of Present Illness Reason for Visit: Right leg pain History of Present Illness 49-year-old male presents for evaluation of right leg pain. Patient reports three days ago helping one of his friends carry some heavy rocks. He states that subsequently he developed severe pain that radiates from his right buttock down to his foot. He states being unable to bear weight on that leg. Denies any numbness or tingling sensation. No other acute complaints. Past Medical History Liver disease, depression, hypertension and dyslipidemia Past Surgical History Right femur surgery Family History Noncontributory Smoke: No ALCOHOL: heavy Drugs: None Lives: Homeless Review of Systems Review of Systems Review of systems are currently negative otherwise addressed in HPI. Allergies: Coded Allergies: Penicillins (Verified Allergy, Unknown, 10/19/19) Medications Current Medications Medications Dose Ordered Sig/Rob Route Start Time Stop Time Status Last Admin Dose Admin Baclofen 5 mg Q12H PRN PO 08/13/24 23:00 Acetaminophen/ Hydrocodone Bitart 1 tab Q4HP PRN PO 08/13/24 22:45 Temazepam 15 mg QHSP PRN PO 08/13/24 22:45 Ondansetron HCl 4 mg Q4HP PRN IV 08/13/24 22:45 Acetaminophen 650 mg Q6HP PRN PO 08/13/24 22:45 Morphine Sulfate 2 mg Q6HPRN PRN IV 08/13/24 22:45 Nitroglycerin 0.4 mg Q5MINP PRN SL 08/13/24 22:45 Morphine Sulfate 2 mg Q30M PRN IV 08/13/24 22:45 Exam Vital Signs Vital Signs Date Time Temp Pulse Resp B/P (MAP) Pulse Ox O2 Delivery O2 Flow Rate FiO2 08/13/24 20:27 98.0 94 16 116/70 (85) 98 98.0 Exam Gen: 49-year-old male in mild distress Skin: Warm, dry, normal color and texture, no rash. HEENT: Normocephalic atraumatic, mucous membranes moist and pink. Neck: Cervical and supraclavicular nodes normal without enlargement, trachea is midline, thyroid gland is normal without masses. Pulmonary: Clear to auscultation and percussion bilaterally. Cardiac: Regular rate and rhythm. No murmur Abdomen: Soft, nontender, nondistended, bowel sounds present all 4 quadrants, no guarding, no rigidity, no organomegaly. Extremities: No cyanosis, clubbing, no edema Neuro: Cranial nerves II through XII grossly intact, normal affect and speech, no focal motor deficits. Labs/Xrays ORDERING PHYSICIAN: RICARDA LIN DO PROCEDURE(s): ABPL - CT AB PEL WO CON-NO ORAL OR IV REASON: r lumbosacral/buttock pain, possible sciatica ORDER NUMBER(s): [id number], ACCESSION NUMBER(s): [id number] CT ABDOMEN AND PELVIS WITHOUT CONTRAST CLINICAL HISTORY: r lumbosacral/buttock pain, possible sciatica TECHNIQUE: Multiple contiguous axial images of the abdomen and pelvis without intravenous contrast. The images were reformatted degenerate coronal and sagittal reconstructions. All CT scans at this medical facility are performed using dose modulation techniques as appropriate to a performed exam including the following:Automated exposure control was utilized; adjustment of the MA and/or KV according to patient size; and use of iterative reconstruction technique. Radiation Dose Information: CT Dose: CTDI volume is 15.18 mGy. Dose-length product is 891.22 mGy*cm Comparison: None FINDINGS: Evaluation of the abdomen and pelvis is limited without intravenous contrast. The liver is small in size with nodular surface contour compatible with cirrhotic morphology. There is no gross hepatic lesion identified on the current noncontrast CT. The gallbladder, pancreas, kidneys, adrenal glands, and spleen appear within normal limits. There is no gross evidence of abdominal lymphadenopathy. There is no free fluid or free air. The small and large bowel loops demonstrate normal caliber. There is moderate amount of stool intermixed with air seen in the colon. The abdominal aorta and IVC appear within normal limits. The bladder grossly appears unremarkable for the degree of distention.. Pelvic organ appears within normal limits. There is no gross evidence of a pelvic mass or fluid collection. Lung bases are clear. There is no acute osseous abnormality. There are several screws in the right femoral neck. IMPRESSION: 1. There is no acute process in the abdomen and pelvis. 2. The liver demonstrates cirrhotic morphology. There is no gross hepatic lesion identified on the current noncontrast CT. 3. Moderate amount of stool intermixed with air in the colon. HS:Y RING PHYSICIAN: RICARDA LIN DO PROCEDURE(s): RLDVT - RT Lower DVT REASON: r calf pain ORDER NUMBER(s): [id number], ACCESSION NUMBER(s): [id number] Clinical History: r calf pain Comparison: None Technique: Duplex Doppler evaluation of the deep venous system of the right lower extremity from the common femoral vein to the popliteal vein including color Doppler and spectral/pulsed waveform analysis was performed. Findings: The common femoral vein demonstrates appropriate compressibility and waveform variability. There is compressibility/patency of the great saphenous vein at the proximal thigh. The femoral vein demonstrates appropriate compressibility and waveform variability. The deep femoral vein demonstrates appropriate compressibility and waveform variability. The popliteal vein demonstrates appropriate compressibility and waveform variability. There is color flow in the tibioperoneal trunk and posterior tibial vein. Impression: 1. No deep venous thrombosis in the right lower extremity. If clinical concern/symptoms persist or worsen, short-interval follow-up study is suggested. ATED BY: MARTHA ARROYO MD Labs Test 08/13/24 19:09 08/13/24 17:00 Range/Units Urine Color Yellow Yellow Urine Clarity Clear Clear Urine pH 6.0 5.0-9.0 Urine Specific [place] 1.028 1.001-1.035 Urine Protein Trace H Negative Urine Ketones Trace Negative Urine Blood Negative Negative /uL Urine Nitrite Negative Negative Urine Bilirubin Negative Negative Urine Urobilinogen 3 H Negative mg/dL Urine Leukocyte Esterase Negative Negative /uL Urine RBC 1 0 - 3 /hpf Urine WBC 1 0 - 3 /hpf Urine Squamous Epithelial Cells Few <5 /hpf Urine Bacteria None seen None Seen /hpf Urine Mucus Few None Seen Urine Glucose 3+ H Normal mg/dL Urine Opiates Screen Neg NEGATIVE Urine Fentanyl Screen Neg NEGATIVE Urine Barbiturates Screen Neg NEGATIVE Urine Phencyclidine Screen Neg NEGATIVE Urine Amphetamines Screen Pos NEGATIVE Urine Benzodiazepines Screen Neg NEGATIVE Urine Cocaine Screen Neg NEGATIVE Urine Cannabinoids Screen Neg NEGATIVE White Blood Count 5.4 4.4-10.8 10^3/uL Red Blood Count 5.08 4.5-5.90 10^6/uL Hemoglobin 16.1 13.5-17.5 g/dL Hematocrit 46.2 41.0-53.0 % Mean Corpuscular Volume 90.9 80.0-100.0 fL Mean Corpuscular Hemoglobin 31.6 28.0-32.0 pg Mean Corpuscular Hemoglobin Concent 34.8 32.0-36.0 g/dL Red Cell Distribution Width 15.2 H 11.8-14.3 % Platelet Count 180 140-450 10^3/uL Mean Platelet Volume 7.9 6.9-10.8 fL Neutrophils (%) (Auto) 62.9 37.0-80.0 % Lymphocytes (%) (Auto) 26.6 10.0-50.0 % Monocytes (%) (Auto) 9.2 0.0-12.0 % Eosinophils (%) (Auto) 0.8 0.0-7.0 % Basophils (%) (Auto) 0.5 0.0-2.0 % Neutrophils # (Auto) 3.4 1.6-8.6 10 ^3/uL Lymphocytes # (Auto) 1.4 0.4-5.4 10 ^3/uL Monocytes # (Auto) 0.5 0-1.3 10 ^3/uL Eosinophils # (Auto) 0 0-0.8 10 ^3/uL Basophils # (Auto) 0 0-0.2 10 ^3/uL Nucleated Red Blood Cells 0.2 % Sodium Level 139 136-145 mmol/L Potassium Level 4.3 3.5-5.1 mmol/L Chloride Level 106 98-107 mmol/L Carbon Dioxide Level 28 20-31 mmol/L Anion Gap 5 5-15 Blood Urea Nitrogen 10 9-23 mg/dL Creatinine 0.74 0.700-1.30 mg/dL Glomerular Filtration Rate Calc 110 >90 mL/min BUN/Creatinine Ratio 13.5 10.0-20.0 Serum Glucose 98 74-106 mg/dL Lactic Acid Level 1.3 0.4-2.0 mmol/L Calcium Level 10.1 8.7-10.4 mg/dL Total Bilirubin 1.0 0.2-1.0 mg/dL Aspartate Amino Transferase (AST) 53 H 13-40 U/L Alanine Aminotransferase (ALT) 44 H 7-40 U/L Alkaline Phosphatase 120 H 46-116 U/L Creatine Kinase 125 46-171 U/L Total Protein 7.4 5.7-8.2 g/dL Albumin 3.9 3.2-4.8 g/dL Assessment/Plan Assessment/Plan Assessment Right leg pain Muscle strain Amphetamine abuse Plan Admit the patient to Med surge to the hospitalist Physical therapy eval Pain management Continue treatment per orders. Plan discussed with: Patient My Orders Orders - ERA REED Procedure Category Date Status Time Baclofen Tablet PHA 08/13/24 In Process (Liorisal Tablet) 23:00 Consistent DIET 08/14/24 Transmitted Carb(Ccho)Diabetes Breakfast Basic Metabolic Panel LAB 08/14/24 Logged 04:00 Admit ADMIT 08/13/24 Transmitted 22:43 Hydrocodone-Acet PHA 08/13/24 In Process 5/325mg Tab (Priddy 22:45 Temazepam (Restoril) PHA 08/13/24 In Process 22:45 Ondansetron Hcl PHA 08/13/24 In Process (Zofran) 22:45 Condition: Stable MAC 08/13/24 In Process 22:43 Acetaminophen Tablet PHA 08/13/24 In Process (Tylenol Tablet) 22:45 Bedrest With Bathroom [facility] 08/13/24 In Process Privileg 22:43 Morphine Sulfate PHA 08/13/24 In Process Injection 22:45 Nitroglycerin PHA 08/13/24 In Process Sublingual (Ntrostat 22:45 Morphine Sulfate PHA 08/13/24 In Process Injection 22:45 Stat Ekg For Chest [facility] 08/13/24 In Process Pain 22:43 Notify Md Of Changes [facility] 08/13/24 In Process From Base 22:43 Benefits Advisor For [facility] 08/13/24 In Process 24 Hours 22:43 Emergency Dysrhythmia [facility] 08/13/24 In Process Protocol 22:43 Rhythm Strips Once [facility] 08/13/24 In Process Every Shift 22:43 Oxygen By Nasal RT 08/13/24 Transmitted Cannula 22:43 Date of Service: Aug 13, 2024 Billing Provider: ERA REED Common Visit Codes: [id number] INP/OBS CARE (MOD) ERA REED Aug 14, 2024 06:26
[2024-08-14 06:40] LABS: Chloride 108 mmol/L (98-107); Potassium 4.6 mmol/L (3.5-5.1); Sodium 140 mmol/L (136-145)
[2024-08-14 06:41] LABS: Anion Gap 5 (5-15); Carbon Dioxide 27 mmol/L (20-31)
[2024-08-14 06:46] LABS: BUN/Creatinine Ratio 16.9 (10.0-20.0); Blood Urea Nitrogen 15 mg/dL (9-23); Glucose 178 mg/dL (74-106)
--- NOTE | 2024-08-14 08:08 | DVH ---
PROCEDURE: Right femur radiographs. INDICATION: pain TECHNIQUE: 4 views of the right femur were obtained. COMPARISON: None FINDINGS: Status post pinning of the right femoral neck . Hardware appears intact. There is no eviden ce of fracture or dislocation. Joint spaces are maintained. The soft tissues are unremarkable. IMPRESSION: 1. No fracture or dislocation. Status post pinning right femoral neck.
--- NOTE | 2024-08-14 08:09 | DVH ---
PROCEDURE: Right tibia/fibula radiographs. INDICATION: pain TECHNIQUE: 3 views of the right tibia / fibula COMPARISON: None FINDINGS: Hardware appears intact. There is no evidence of fracture or dislocation. Joint spaces ar e maintained. The soft tissues are unremarkable. IMPRESSION: 1. No fracture or dislocation.
--- NOTE | 2024-08-14 14:29 | DVHPN2 ---
Reviewed: Care Plan, H&P, Labs, Medications, Previous Orders, Radiology Changes from previous H/P or p: No Changes Objective Vitals Vital Signs Date Time Temp Pulse Resp B/P (MAP) Pulse Ox O2 Delivery O2 Flow Rate FiO2 08/13/24 20:27 98.0 94 16 116/70 (85) 98 98.0 Intake/Output Intake and Output 08/14/24 07:00 Intake Total 1000 ml Balance 1000 ml Intake IV Total 1000 ml Medications Current Medications Medications Dose Ordered Sig/Rob Route Start Time Stop Time Status Last Admin Dose Admin Baclofen 5 mg Q12H PRN PO 08/13/24 23:00 Acetaminophen/ Hydrocodone Bitart 1 tab Q4HP PRN PO 08/13/24 22:45 Temazepam 15 mg QHSP PRN PO 08/13/24 22:45 Ondansetron HCl 4 mg Q4HP PRN IV 08/13/24 22:45 Acetaminophen 650 mg Q6HP PRN PO 08/13/24 22:45 Morphine Sulfate 2 mg Q6HPRN PRN IV 08/13/24 22:45 Nitroglycerin 0.4 mg Q5MINP PRN SL 08/13/24 22:45 Morphine Sulfate 2 mg Q30M PRN IV 08/13/24 22:45 Laboratory Results Laboratory Tests 08/13/24 17:00 08/14/24 05:43 Chemistry Test 08/13/24 17:00 08/14/24 05:43 Albumin 3.9 g/dL (3.2-4.8) Calcium Level 10.1 mg/dL (8.7-10.4) 10.0 mg/dL (8.7-10.4) Total Protein 7.4 g/dL (5.7-8.2) LFT Test 08/13/24 17:00 Alanine Aminotransferase (ALT) 44 U/L (7-40) H Alkaline Phosphatase 120 U/L (46-116) H Aspartate Amino Transferase (AST) 53 U/L (13-40) H Total Bilirubin 1.0 mg/dL (0.2-1.0) Urinalysis Test 08/13/24 19:09 Urine Color Yellow (Yellow) Urine Clarity Clear (Clear) Urine pH 6.0 (5.0-9.0) Urine Specific [place] 1.028 (1.001-1.035) Urine Protein Trace (Negative) H Urine Ketones Trace (Negative) Urine Blood Negative /uL (Negative) Urine Nitrite Negative (Negative) Urine Bilirubin Negative (Negative) Urine Urobilinogen 3 mg/dL (Negative) H Urine Leukocyte Esterase Negative /uL (Negative) Urine RBC 1 /hpf (0 - 3) Urine WBC 1 /hpf (0 - 3) Urine Squamous Epithelial Cells Few /hpf (<5) Urine Bacteria None seen /hpf (None Seen) Urine Mucus Few (None Seen) Urine Glucose 3+ mg/dL (Normal) H Labs and/or images reviewed: Labs reviewed by me, Image(s) reviewed by me Assessment/Plan Assessment/Plan Right sciatica: Baclofen [place], CT LS spine pending Muscular spasm right lower extremity DVT ruled out Right femur x-ray negative Right tib-fib x-ray negative Depression Hypertension Hypercholesterolemia Cirrhosis of liver Time spent 45 minutes Plan discussed with: Patient My Orders Orders - SANTHOSH PIERRE MD Procedure Category Date Status Time Ls Spine Wo Contrast CT 08/14/24 Verified 14:27 Date of Service: Aug 14, 2024 Billing Provider: SANTHOSH PIERRE MD Common Visit Codes: [id number] INP/OBS CARE(HIGH) SANTHOSH PIERRE MD Aug 14, 2024 14:29
--- NOTE | 2024-08-14 15:27 | DVH ---
EXAM: CT LS SPINE WO CONTRAST INDICATION: Sciatica right EXAM DATE: 08/14/2024 02:41 PM COMPARISON: none TECHNIQUE: Multiple axial CT images of the lumbar spine were obtained using bone algorithm. Axial and coronal reformatting was done. Bone and soft tissue windows were reviewed. Radiation Dose Information: CT Dose: CTDI volume is 32.94 mGy. Dose-length product is 1111.88 mGy*cm Findings: There are 5 nonrib-bearing lumbar vertebrae. There is no evidence of an acute fracture or spondylolisthesis. The vertebral body heights are well-m aintained. Multilevel marginal vertebral body endplate reactive osteophytosis. Multilevel moderate to severe degenerative disc disease. Moderate bilateral neuroforaminal narrowing at L3/L4 and L4/L5. Severer left sided neuroforaminal mami rowing at L2/L3 and L3/L4. No spinal canal stenosis. The alignment is within normal limits. The paraspinal soft tissues appear within normal limits. The v isualized portions of the abdomen are unremarkable. Impression: 1. No evidence of an acute fracture. 2. Moderate to marked degenerative changes of the lumbar spine with multilevel moderate to severe deg enerative disc disease and neuroforaminal narrowing as described above.
[2024-08-14] MEDS: MORPHINE SULFATE INJ 2 MG/ml SYRG IV PRN (19:53)
[2024-08-14] MEDS ORDERED: BACLOFEN 10 MG TAB PO PRN (22:00)
--- NOTE | 2024-08-15 08:44 | DVHPN2 ---
Reviewed: Care Plan, H&P, Labs, Medications, Previous Orders, Radiology Changes from previous H/P or p: No Changes Objective Vitals Vital Signs Date Time Temp Pulse Resp B/P (MAP) Pulse Ox O2 Delivery O2 Flow Rate FiO2 08/14/24 20:23 99 17 119/71 08/14/24 17:04 98.9 97 98.9 Medications Current Medications Medications Dose Ordered Sig/Rob Route Start Time Stop Time Status Last Admin Dose Admin Acetaminophen/ Hydrocodone Bitart 1 tab Q4HP PRN PO 08/13/24 22:45 Temazepam 15 mg QHSP PRN PO 08/13/24 22:45 Ondansetron HCl 4 mg Q4HP PRN IV 08/13/24 22:45 Acetaminophen 650 mg Q6HP PRN PO 08/13/24 22:45 Morphine Sulfate 2 mg Q6HPRN PRN IV 08/13/24 22:45 08/14/24 19:53 2 MG Nitroglycerin 0.4 mg Q5MINP PRN SL 08/13/24 22:45 Morphine Sulfate 2 mg Q30M PRN IV 08/13/24 22:45 Baclofen 10 mg Q8HPRN PRN PO 08/14/24 22:00 Laboratory Results Laboratory Tests 08/13/24 17:00 08/14/24 05:43 Urinalysis Test 08/13/24 19:09 Urine Color Yellow (Yellow) Urine Clarity Clear (Clear) Urine pH 6.0 (5.0-9.0) Urine Specific [place] 1.028 (1.001-1.035) Urine Protein Trace (Negative) H Urine Ketones Trace (Negative) Urine Blood Negative /uL (Negative) Urine Nitrite Negative (Negative) Urine Bilirubin Negative (Negative) Urine Urobilinogen 3 mg/dL (Negative) H Urine Leukocyte Esterase Negative /uL (Negative) Urine RBC 1 /hpf (0 - 3) Urine WBC 1 /hpf (0 - 3) Urine Squamous Epithelial Cells Few /hpf (<5) Urine Bacteria None seen /hpf (None Seen) Urine Mucus Few (None Seen) Urine Glucose 3+ mg/dL (Normal) H Labs and/or images reviewed: Labs reviewed by me, Image(s) reviewed by me Assessment/Plan Assessment/Plan Right sciatica: Baclofen [place], CT LS spine negative for any acute pathology Muscular spasm right lower extremity DVT ruled out Right femur x-ray negative Right tib-fib x-ray negative Depression Hypertension Hypercholesterolemia Cirrhosis of liver Time spent 45 minutes Plan discussed with: Patient My Orders Orders - SANTHOSH PIERRE MD Procedure Category Date Status Time Ls Spine Wo Contrast CT 08/14/24 Resulted 14:27 Date of Service: Aug 15, 2024 Billing Provider: SANTHOSH PIERRE MD Common Visit Codes: [id number] INP/OBS CARE(HIGH) SANTHOSH PIERRE MD Aug 15, 2024 08:44
[2024-08-15 09:00] VITALS: BP_SYST 112; BP_SYST 130; BP_DIAS 70; BP_DIAS 74; PULSE 72; PULSE 82; RESP 16; TEMP 98.7; O2SAT 94; O2SAT 95
[2024-08-15] MEDS ORDERED: BACL20TA PO (09:19)
[2024-08-15] MEDS ORDERED: HYDR-4798 PO (09:19)
--- NOTE | 2024-08-15 09:30 | DVHDS2 ---
Discharge Summary Date of Admission Aug 13, 2024 at 22:43 Date of Discharge: Aug 15, 2024 Admitting Diagnosis Right leg pain Wounds: None Labs/Diagnostic Data: Laboratory Results Test 08/14/24 05:43 08/13/24 19:09 08/13/24 17:00 Sodium Level 140 mmol/L (136-145) Potassium Level 4.6 mmol/L (3.5-5.1) Chloride Level 108 mmol/L (98-107) Carbon Dioxide Level 27 mmol/L (20-31) Anion Gap 5 (5-15) Blood Urea Nitrogen 15 mg/dL (9-23) Creatinine 0.89 mg/dL (0.700-1.30) Glomerular Filtration Rate Calc 104 mL/min (>90) BUN/Creatinine Ratio 16.9 (10.0-20.0) Serum Glucose 178 mg/dL (74-106) Calcium Level 10.0 mg/dL (8.7-10.4) Urine Color Yellow (Yellow) Urine Clarity Clear (Clear) Urine pH 6.0 (5.0-9.0) Urine Specific [place] 1.028 (1.001-1.035) Urine Protein Trace (Negative) Urine Ketones Trace (Negative) Urine Blood Negative /uL (Negative) Urine Nitrite Negative (Negative) Urine Bilirubin Negative (Negative) Urine Urobilinogen 3 mg/dL (Negative) Urine Leukocyte Esterase Negative /uL (Negative) Urine RBC 1 /hpf (0 - 3) Urine WBC 1 /hpf (0 - 3) Urine Squamous Epithelial Cells Few /hpf (<5) Urine Bacteria None seen /hpf (None Seen) Urine Mucus Few (None Seen) Urine Glucose 3+ mg/dL (Normal) Urine Opiates Screen Neg (NEGATIVE) Urine Fentanyl Screen Neg (NEGATIVE) Urine Barbiturates Screen Neg (NEGATIVE) Urine Phencyclidine Screen Neg (NEGATIVE) Urine Amphetamines Screen Pos (NEGATIVE) Urine Benzodiazepines Screen Neg (NEGATIVE) Urine Cocaine Screen Neg (NEGATIVE) Urine Cannabinoids Screen Neg (NEGATIVE) White Blood Count 5.4 10^3/uL (4.4-10.8) Red Blood Count 5.08 10^6/uL (4.5-5.90) Hemoglobin 16.1 g/dL (13.5-17.5) Hematocrit 46.2 % (41.0-53.0) Mean Corpuscular Volume 90.9 fL (80.0-100.0) Mean Corpuscular Hemoglobin 31.6 pg (28.0-32.0) Mean Corpuscular Hemoglobin Concent 34.8 g/dL (32.0-36.0) Red Cell Distribution Width 15.2 % (11.8-14.3) Platelet Count 180 10^3/uL (140-450) Mean Platelet Volume 7.9 fL (6.9-10.8) Neutrophils (%) (Auto) 62.9 % (37.0-80.0) Lymphocytes (%) (Auto) 26.6 % (10.0-50.0) Monocytes (%) (Auto) 9.2 % (0.0-12.0) Eosinophils (%) (Auto) 0.8 % (0.0-7.0) Basophils (%) (Auto) 0.5 % (0.0-2.0) Neutrophils # (Auto) 3.4 10 ^3/uL (1.6-8.6) Lymphocytes # (Auto) 1.4 10 ^3/uL (0.4-5.4) Monocytes # (Auto) 0.5 10 ^3/uL (0-1.3) Eosinophils # (Auto) 0 10 ^3/uL (0-0.8) Basophils # (Auto) 0 10 ^3/uL (0-0.2) Nucleated Red Blood Cells 0.2 % Lactic Acid Level 1.3 mmol/L (0.4-2.0) Total Bilirubin 1.0 mg/dL (0.2-1.0) Aspartate Amino Transferase (AST) 53 U/L (13-40) Alanine Aminotransferase (ALT) 44 U/L (7-40) Alkaline Phosphatase 120 U/L (46-116) Creatine Kinase 125 U/L (46-171) Total Protein 7.4 g/dL (5.7-8.2) Albumin 3.9 g/dL (3.2-4.8) Other Laboratory Tests 08/14/24 05:43 08/13/24 17:00 Brief Hx & Hospital Course: Right sciatica: Baclofen [place], CT LS spine negative for any acute pathology Muscular spasm right lower extremity DVT ruled out Right femur x-ray negative Right tib-fib x-ray negative Depression Hypertension Hypercholesterolemia Cirrhosis of liver Consults/Reason for consult 49-year-old male with a history of depression hypertension hypercholesterolemia cirrhosis of liver came in complaining of right leg pain radiating from the back to the lower leg. Patient tells me that he was trying to help his friend move the luggage. Patient was treated with the baclofen and [place]. Right tib-fib x- ray negative right femur x-ray negative CT LS spine is negative for any acute pathology. Patient feels slightly better and being discharged home on [place] and baclofen. He will follow up with his primary Dr Operations or Procedures Right femur x-ray Right tib-fib x-ray CT LS spine Condition at Discharge: Fair Final Diagnosis/Problems List Right sciatica: Baclofen [place], CT LS spine negative for any acute pathology Muscular spasm right lower extremity DVT ruled out Right femur x-ray negative Right tib-fib x-ray negative Depression Hypertension Hypercholesterolemia Cirrhosis of liver Discharge Disposition: Home Discharge Instruct/Medications Diet: Regular Activity: Light activity Follow Up/Referral: Follow up with the primary Dr Resume all previous home meds Medications: Baclofen [place] Transmitted to pharmacy 35 (Time taken for discharge summary 35 minutes) Discharge Statement: "Patient was advised to return to the ER or call 911 if any headaches, dizziness, shortness of breath, chest pain, abdominal pain, bleeding, fevers, or worsening of medical condition. Patient was counseled about treatment plan, medications, possible side effects, patientverbalized understanding. All questions were answered to the best of my ability. This discharge took greater then 30 minutes in planning, reviewing documentation, counseling the patient, and discussing with other team members." ASSESSMENT ASSESSMENT Hospital Course Uneventful Assessment Right sciatica: Baclofen [place], CT LS spine negative for any acute pathology Muscular spasm right lower extremity DVT ruled out Right femur x-ray negative Right tib-fib x-ray negative Depression Hypertension Hypercholesterolemia Cirrhosis of liver Date of Service: Aug 15, 2024 Billing Provider: SANTHOSH PIERRE MD Common Visit Codes: [id number] DISCH DAY >30min SANTHOSH PIERRE MD Aug 15, 2024 09:30
[2024-08-15] MEDS: HYDROcodone-ACET 5/325MG TAB PO PRN (09:57)
== END 2024-08-15 13:48 | disposition home or self-care (01) | DRG 347 ==
LOC: EDUNIT# 16:00 → EDBD 16:00 → ER 16:00 → OVERFLOW 22:43
PROVIDERS: ADMIT Nurse Practitioner; ATTEND Family Medicine
DX: M54.31 Sciatica, right side (principal); K74.60 Unspecified cirrhosis of liver; E11.9 Type 2 diabetes mellitus without complications; M62.838 Other muscle spasm; F15.10 Other stimulant abuse, uncomplicated; F32.A Depression, unspecified; F41.9 Anxiety disorder, unspecified; I10 Essential (primary) hypertension; F17.210 Nicotine dependence, cigarettes, uncomplicated; E78.00 Pure hypercholesterolemia, unspecified; Z87.11 Personal history of peptic ulcer disease; Z59.00 Homelessness unspecified; Z88.0 Allergy status to penicillin
CPT/HCPCS: 36415; 72131; 73590; 74176; 80048; 80053; 80307; 81001; 82550; 83605; 85025; 93971; G0378; J1100